=== PATIENT | female | born 1950 | race African-American/Black ===

== ENCOUNTER 2017-01-11 18:47 | Emergency (ER) | payer OTHER ==
[2017-01-11 19:00] VITALS: BP 142/82; PULSE 52; TEMP 98.1; BMI 33.2
[2017-01-11] MEDS ORDERED: ACETAMINOPHEN 500 MG TABLET (FP) PO ONE (19:50)
[2017-01-11] MEDS ORDERED: ACETAMINOPHEN 500 MG TABLET (FP) ONE (19:56)
--- NOTE | 2017-01-11 20:04 | PDOC ---
History of Present Illness - General Chief Complaint: Pain Stated Complaint: RT LEG PAIN Time Seen by Provider: 01/11/17 19:37 History Source: Patient Exam Limitations: No Limitations - History of Present Illness Initial Comments: 01/11/17 20:02 66 yr female with c/o right leg pain for 4 days after flying from [place]. Pt states "cramping, numbness, tingling sensation" to right lateral calf up to thigh, comes and goes. Pt denies trauma, neg headache or dizzyness. Pt has history of HTN. Past History - Past Medical History Allergies/Adverse Reactions: Allergies Allergy/AdvReac Type Severity Reaction Status Date / Time Penicillins Allergy Verified 01/11/17 18:57 Home Medications: Ambulatory Orders Amlodipine Besylate [Norvasc -] 2.5 mg PO DAILY 12/25/15 Gabapentin 300 mg PO BID 12/25/15 Gabapentin [Neurontin -] 300 mg PO Q8H #21 capsule 01/11/17 HTN: Yes - Immunization History Immunization Up to Date: Yes - Psycho/Social/Smoking Cessation Hx Anxiety: No Suicidal Ideation: No Smoking History: Never smoked Have you smoked in the past 12 months: No Hx Alcohol Use: No Drug/Substance Use Hx: No Substance Use Type: None Review of Systems - Review of Systems Able to Perform ROS?: Yes Is the patient limited Mohawk proficient: No Constitutional: No: Symptoms Reported HEENTM: No: Symptoms Reported Respiratory: No: Symptoms reported Cardiac (ROS): No: Symptoms Reported ABD/GI: No: Symptoms Reported : No: Symptoms Reported Musculoskeletal: Yes: Symptoms Reported, See HPI Integumentary: No: Symptoms Reported Neurological: No: Symptoms reported *Physical Exam - Vital Signs Last Vital Signs Temp Pulse Resp BP Pulse Ox 98.1 F 52 L 19 142/82 100 01/11/17 18:57 01/11/17 18:57 01/11/17 18:57 01/11/17 18:57 01/11/17 18:57 - Physical Exam General Appearance: Yes: Nourished, Appropriately Dressed HEENT: positive: EOMI, MICHELLE, TMs Normal, Pharynx Normal Neck: positive: Supple Respiratory/Chest: positive: Lungs Clear, Normal Breath Sounds Cardiovascular: positive: Regular Rhythm, Regular Rate Gastrointestinal/Abdominal: positive: Normal Bowel Sounds, Soft Musculoskeletal: positive: Normal Inspection Extremity: positive: Normal Capillary Refill, Normal Inspection, Normal Range of Motion, Tender (right calf , no redness no swelling ), Calf Tenderness. negative: Coldness, Cyanosis, Delayed Capillary Refill, Pedal Edema, Swelling, Erythema, Inflammation Integumentary: positive: Normal Color, Dry, Warm Neurologic: positive: Fully Oriented, Alert, Normal Mood/Affect, Normal Response , Motor Strength 01/15 ED Treatment Course - RADIOLOGY Radiology Studies Ordered: Category Date Time Status DUPLEX VASCUL US-1 LEG [US] Stat Ultrasound 01/11/17 19:50 Ordered - Medications Given in the ED: ED Medications Discontinued Medications Generic Name Dose Route Start Last Admin Trade Name Freq PRN Reason Stop Dose Admin Acetaminophen 1,000 mg 01/11/17 19:50 01/11/17 20:02 Tylenol - PO 01/11/17 19:51 1,000 mg ONCE ONE Administration Medical Decision Making - Medical Decision Making 01/11/17 20:04 cc: right leg pain calf pain will r/o DVT *DC/Admit/Observation/Transfer Diagnosis at time of Disposition: Leg pain Qualifiers: Laterality: right Qualified Code(s): M79.604 - Pain in right leg - Discharge Dispostion Disposition: HOME Condition at time of disposition: Good - Prescriptions Prescriptions: Gabapentin [Neurontin -] 300 mg PO Q8H #21 capsule - Patient Instructions Additional Instructions: follow with Dr.Gerdis moscoso tomorrow to make a follow up appointment tell them you were in the ER for leg pain please take gabapentin three times a day apply warm compresses to the lower leg every 4hrs for 20 minutes
== END 2017-01-11 20:48 | disposition home or self-care (01) ==
LOC: JERFT 18:47
DX: M79.604 Pain in right leg (principal); I10 Essential (primary) hypertension; X50.1XXA Overexertion from prolonged static or awkward postures, initial encounter; Y93.89 Activity, other specified; Y92.813 Airplane as the place of occurrence of the external cause; Y99.8 Other external cause status
CPT/HCPCS: 93971-TC; 99281-25

== ENCOUNTER 2018-04-09 21:38 | Emergency (ER) | payer OTHER ==
[2018-04-09 22:30] VITALS: BP 155/94; PULSE 75; TEMP 99.6; BMI 24.3
[2018-04-09] MEDS ORDERED: KETOROLAC TROMETHAMINE 30 MG/1 ML VIAL IVPUSH ONE (22:56)
[2018-04-09] MEDS ORDERED: SODIUM CHLORIDE 0.9% 500 ML INFUS.BAG IV ONE (22:56)
--- NOTE | 2018-04-09 22:56 | PDOC ---
Attending Attestation - HPI HPI: 04/10/18 00:37 The patient is a 67 year old female with a past medical history of hypertension who presents to the emergency department for evaluation of back pain. The patient reports a 3 day history of right sided mid back pain. She describes the pain as acute, constant, without radiation, and exacerbated when lying supine. She reports an associated symptom of nausea without vomiting. Pt reports taking 2 ibuprofen with relief to symptoms. Of note, patient has not had a normal bowel movement in the last 2 days. The patient denies recent strenuous activity, chest pain, sob, headache, and dizziness. Denies fever, chills, vomiting, and any bowel/urinary symptoms. Allergies: Penicillins. - Physicial Exam PE: GENERAL: Awake, alert, and fully oriented, in no acute distress HEAD: No signs of trauma EYES: PERRLA, EOMI, sclera anicteric, conjunctiva clear ENT: Auricles normal inspection, hearing grossly normal, nares patent, oropharynx clear without exudates. Moist mucosa NECK: Normal ROM, supple, no lymphadenopathy, JVD, or masses LUNGS: Breath sounds equal, clear to auscultation bilaterally. No wheezes, and no crackles HEART: Regular rate and rhythm, normal S1 and S2, no murmurs, rubs or gallops ABDOMEN: (+)gassy bowel sounds. No flank pain with percussion. Soft, nontender. No guarding, no rebound. No masses MUSCULOSKELETAL: (+)right mid back pain greater with palpation than percussion. EXTREMITIES: Normal range of motion, no edema. No clubbing or cyanosis. No cords, erythema, or tenderness NEUROLOGICAL: Cranial nerves II through XII grossly intact. Normal speech, normal gait SKIN: Warm, Dry, normal turgor, no rashes or lesions noted. <Mia Atkins - Last Filed: 04/10/18 00:37> - Resident Resident Name: Trini Arguelles - ED Attending Attestation I have performed the following: I have examined & evaluated the patient, The case was reviewed & discussed with the resident, I agree w/resident's findings & plan - Medical Decision Making 04/10/18 20:52 Labs and imaging and exam normal. Pt will be d/c home with meds for constipation. Patient Name: GERALDINE ELLIOTT THIS IS A PRELIMINARY REPORT FROM [facility] DATE OF SERVICE: 2018-04-10 00:52:34 IMAGES: [id number] EXAM: ABDOMEN \T\ PELVIS CT W/O CONTR HISTORY: Rule out nephrolithiasis COMPARISON: None. FINDINGS: Lung bases are clear. The visualized cardiac chambers are normal size and configuration. Normal unenhanced liver, gallbladder, pancreas, spleen, adrenal glands and kidneys. The stomach and abdominal small and large bowel are normal. There is no aortic aneurysm. There is no significant retroperitoneal lymphadenopathy. The pelvic small and large bowel are normal. There is no evidence of appendicitis, although the appendix is not clearly visualized. Status post hysterectomy. Urinary bladder is unremarkable. There is no pelvic free fluid. No discrete pelvic lymphadenopathy is identified. IMPRESSION: No evidence acute pathology <Mimi Otero - Last Filed: 04/10/18 20:53> Attestations - Attestations Documentation prepared by Mia Atkins, acting as medical corps officer for Mimi Otero MD. <Mia Atkins - Last Filed: 04/10/18 00:37>
--- NOTE | 2018-04-09 23:09 | PDOC ---
History of Present Illness <Mimi Otero - Last Filed: 04/10/18 01:44> - History of Present Illness Initial Comments: 04/09/18 23:00 67 year old w/ history of HTN who presents with 3 days of R sided mid back pain that is constant, nonradiating and associated with nausea. She notes the pain came on suddenly when she was relaxing. She denies any heavy lifting or strenuous activity, burning with urination, blood in urine or stool, fever, vomiting, diarrhea or constipation. She states that her pain is relieved with ibuprofen and becomes worse with laying down and deep breathing. She has no other complaints at bedside. PMHX: none PSHX: none Meds: amlodipine, carvedilol Allergies: NKDA Tob: none Etoh: none Rec drugs: none <Trini Arguelles - Last Filed: 04/10/18 01:52> - General Chief Complaint: Back Pain Stated Complaint: BACK PAIN Time Seen by Provider: 04/09/18 22:18 Past History <Mimi Otero - Last Filed: 04/10/18 01:44> - Past Medical History HTN: Yes - Immunization History Immunization Up to Date: Yes - Suicide/Smoking/Psychosocial Hx Smoking History: Never smoked Have you smoked in the past 12 months: No Information on smoking cessation initiated: No Hx Alcohol Use: No Drug/Substance Use Hx: No Substance Use Type: None <Trini Arguelles - Last Filed: 04/10/18 01:52> - Past Medical History Allergies/Adverse Reactions: Allergies Allergy/AdvReac Type Severity Reaction Status Date / Time Penicillins Allergy Verified 04/09/18 22:29 Home Medications: Ambulatory Orders Amlodipine Besylate [Norvasc -] 2.5 mg PO DAILY 12/25/15 Gabapentin 300 mg PO BID 12/25/15 Gabapentin [Neurontin -] 300 mg PO Q8H #21 capsule 01/11/17 Acetaminophen [Tylenol] 325 mg PO BID #10 tablet 04/10/18 Review of Systems - Review of Systems Able to Perform ROS?: Yes Is the patient limited Turkish proficient: No Constitutional: No: Chills, Diaphoresis, Fever HEENTM: No: Tinnitus Respiratory: No: Cough, Orthopnea, Shortness of Breath Cardiac (ROS): No: Chest Pain, Palpitations, Chest Tightness ABD/GI: Yes: Nausea. No: Constipated, Diarrhea, Vomiting : No: Burning, Dysuria, Hematuria Musculoskeletal: Yes: Back Pain Neurological: No: Headache, Numbness, Tingling <Trini Arguelles - Last Filed: 04/10/18 01:52> *Physical Exam - Vital Signs Last Vital Signs Temp Pulse Resp BP Pulse Ox 99.6 F 75 20 155/94 100 04/09/18 22:29 04/09/18 22:29 04/09/18 22:29 04/09/18 22:29 04/09/18 22:29 <OteroMimi - Last Filed: 04/10/18 01:44> - Vital Signs Last Vital Signs Temp Pulse Resp BP Pulse Ox 99.6 F 75 20 155/94 100 04/09/18 22:29 04/09/18 22:29 04/09/18 22:29 04/09/18 22:29 04/09/18 22:29 - Physical Exam Comments: 04/09/18 23:09 GENERAL: Awake, alert, and fully oriented, somewhat uncomfortable in bed. HEAD: No signs of trauma, normocephalic, atraumatic EYES: EOMI, sclera anicteric, conjunctiva clear ENT: oropharynx clear without exudates. Moist mucosa NECK: Normal ROM LUNGS: No distress, speaks full sentences, clear to auscultation bilaterally HEART: Regular rate and rhythm, normal S1 and S2, no murmurs, rubs or gallops, peripheral pulses normal and equal bilaterally. ABDOMEN: Soft, nontender, normoactive bowel sounds. No guarding, no rebound. No masses BACK: No CVA tenderness EXTREMITIES : Normal inspection, Normal range of motion, no edema. No clubbing or cyanosis. NEUROLOGICAL: Normal speech, normal gait, no focal sensorimotor deficits SKIN: Warm, Dry, normal turgor, no rashes or lesions noted <Trini Arguelles - Last Filed: 04/10/18 01:52> ED Treatment Course - LABORATORY CBC & Chemistry Diagram: 04/09/18 23:30 04/09/18 23:30 - ADDITIONAL ORDERS Additional order review: Laboratory Results 04/09/18 04/09/18 23:30 23:30 Sodium 140 Potassium 4.1 Chloride 105 Carbon Dioxide 27 Anion Gap 8 BUN 18 Creatinine 0.9 Creat Clearance w eGFR > 60 Random Glucose 96 Calcium 9.2 Total Bilirubin 0.4 AST 18 ALT 23 Alkaline Phosphatase 83 Total Protein 7.6 Albumin 3.5 Urine Color Colorless Urine Appearance Clear Urine pH 8.0 Ur Specific [place] 1.004 Urine Protein Negative Urine Glucose (UA) Negative Urine Ketones Negative Urine Blood Negative Urine Nitrite Negative Urine Bilirubin Negative Urine Urobilinogen Negative Ur Leukocyte Esterase Negative 04/09/18 23:30 RBC 4.33 MCV 79.9 L MCHC 33.6 RDW 17.2 H MPV 8.1 Neutrophils % 62.6 Lymphocytes % 25.9 Monocytes % 9.6 Eosinophils % 1.4 Basophils % 0.5 - Medications Given in the ED: ED Medications Discontinued Medications Generic Name Dose Route Start Last Admin Trade Name Rajeshq PRN Reason Stop Dose Admin Ketorolac Tromethamine 30 mg 04/09/18 22:56 04/09/18 23:36 Toradol Injection - IVPUSH 04/09/18 22:57 30 mg ONCE ONE Administration Lactulose 20 gm 04/10/18 00:35 04/10/18 01:25 Cephulac (Oral Use) PO 04/10/18 00:36 20 gm ONCE ONE Administration Sodium Chloride 500 ml 04/09/18 22:56 04/09/18 23:35 Normal Saline - IV 04/09/18 22:57 500 ml ONCE ONE Administration <Mimi Otero - Last Filed: 04/10/18 01:44> - LABORATORY CBC & Chemistry Diagram: 04/09/18 23:30 04/09/18 23:30 - RADIOLOGY Radiology Studies Ordered: Category Date Time Status ABDOMEN CT WITHOUT CONTRAST [CT] Stat CT Scan 04/09/18 22:52 Ordered <Trini Arguelles - Last Filed: 04/10/18 01:52> Medical Decision Making - Medical Decision Making 04/09/18 23:12 67 year old w/ history of HTN who presents with 3 days of R sided mid back pain that is constant, nonradiating and associated with nausea. The patients symptoms and history or most consistent with nephrolithiasis vs UTI vs pyelonephritis vs muscle strain. We will evaluate for these etiologies. 04/10/18 01:45 Lab work and imaging show no acute pathology and no necessity for immediate hospitalization. Patient is stable for discharge. Will give short course of Tylenol and advise to follow up with PCP. <Trini Arguelles - Last Filed: 04/10/18 01:52> *DC/Admit/Observation/Transfer - Discharge Dispostion Decision to Admit order: No <Mimi Otero - Last Filed: 04/10/18 01:44> <Trini Arguelles - Last Filed: 04/10/18 01:52> Diagnosis at time of Disposition: Constipation - Discharge Dispostion Disposition: HOME Condition at time of disposition: Stable - Prescriptions Prescriptions: Acetaminophen [Tylenol] 325 mg PO BID #10 tablet - Referrals Referrals: Sukumar Patel MD [Primary Care Provider] - - Patient Instructions Printed Discharge Instructions: DI for Constipation - Post Discharge Activity
[2018-04-09] MEDS ORDERED: KETOROLAC TROMETHAMINE 30 MG/1 ML VIAL ONE (23:12)
[2018-04-09 23:42] LABS: BASO % 0.5 % (0-2.0); EOS % 1.4 % (0-4.5); HEMATOCRIT 34.6 % (32.4-45.2); HEMOGLOBIN 11.6 GM/dL (10.7-15.3); LYMPH % 25.9 % (8-40); MCH 26.8 pg (25.7-33.7); MCHC 33.6 g/dl (32.0-36.0); MEAN CELL VOLUME 79.9 fl (80-96); MEAN PLT VOLUME 8.1 fl (7.5-11.1); MONO % 9.6 % (3.8-10.2); NEUT % 62.6 % (42.8-82.8); PLATELET COUNT 273 K/MM3 (134-434); RBC 4.33 M/mm3 (3.60-5.2); RDW 17.2 % (11.6-15.6); WHITE BLOOD COUNT 8.1 K/mm3 (4.0-10.0)
[2018-04-09 23:43] LABS: URINE APPEARANCE CLEAR; URINE BILIRUBIN NEGATIVE (<2.0 mg/dL); URINE COLOR COLORLESS; URINE GLUCOSE (UA) NEGATIVE (NEGATIVE); URINE KETONE NEGATIVE (NEGATIVE); URINE LEUK ESTERASE NEGATIVE (NEGATIVE); URINE NITRITE NEGATIVE (NEGATIVE); URINE PROTEIN NEGATIVE (NEGATIVE); URINE UROBILINOGEN NEGATIVE mg/dL (0.2-1.0)
[2018-04-10 00:03] LABS: ALBUMIN 3.5 g/dl (3.4-5.0); ALK PHOS 83 U/L (45-117); ANION GAP 8 (8-16); BILIRUBIN,TOTAL 0.4 mg/dL (0.2-1.0); BLOOD UREA NITROGEN 18 mg/dL (7-18); CALCIUM 9.2 mg/dL (8.5-10.1); CHLORIDE 105 mmol/L (98-107); CO2 27 mmol/L (21-32); CREATININE 0.9 mg/dL (0.55-1.02); GLUCOSE,RANDOM 96 mg/dL (74-106); POTASSIUM 4.1 mmol/L (3.5-5.1); SGOT/AST 18 U/L (15-37); SGPT/ALT 23 U/L (12-78); SODIUM 140 mmol/L (136-145); TOT PROT 7.6 g/dl (6.4-8.2)
[2018-04-10] MEDS ORDERED: LACTULOSE 20 GM/30 ML UDC (FOR ORAL USE ONLY) PO ONE (00:35)
[2018-04-10] MEDS ORDERED: LACTULOSE 20 GM/30 ML UDC (FOR ORAL USE ONLY) ONE (00:49)
== END 2018-04-10 02:18 | disposition home or self-care (01) ==
LOC: JER 21:38
PROC: 3E0333Z Introduction of Anti-inflammatory into Peripheral Vein, Percutaneous Approach (ICD-10-PCS; principal; 2018-04-09)
PROC: 3E033NZ Introduction of Analgesics, Hypnotics, Sedatives into Peripheral Vein, Percutaneous Approach (ICD-10-PCS; 2018-04-09)
DX: K59.00 Constipation, unspecified (principal); I10 Essential (primary) hypertension
CPT/HCPCS: 36415; 74176-TC; 80053; 81003; 85025; 87086; 99281-25

== ENCOUNTER 2018-11-27 09:15 | Emergency (ER) | payer OTHER ==
[2018-11-27 09:21] VITALS: BP 152/74; PULSE 62; TEMP 97.7; BMI 33.2
--- NOTE | 2018-11-27 09:46 | PDOC ---
History of Present Illness - General Chief Complaint: Pain Stated Complaint: LEG NUMBNESS Time Seen by Provider: 11/27/18 09:32 History Source: Patient (L knee thighness X 4 months) Exam Limitations: No Limitations - History of Present Illness Associated Symptoms: denies: chest pain, cough Past History - Past Medical History Allergies/Adverse Reactions: Allergies Allergy/AdvReac Type Severity Reaction Status Date / Time Penicillins Allergy Verified 11/27/18 09:21 Home Medications: Ambulatory Orders Amlodipine Besylate [Norvasc -] 2.5 mg PO DAILY 12/25/15 Carvedilol 12.5 mg PO ASDIR 11/27/18 COPD: No HTN: Yes - Immunization History Immunization Up to Date: Yes - Suicide/Smoking/Psychosocial Hx Smoking History: Never smoked Have you smoked in the past 12 months: No Hx Alcohol Use: No Drug/Substance Use Hx: No Substance Use Type: None Review of Systems - Review of Systems Is the patient limited Belarusian proficient: No Constitutional: No: Chills, Fever Respiratory: No: Orthopnea, Shortness of Breath Cardiac (ROS): No: Chest Pain, Irregular Heart Rate ABD/GI: No: Abdominal Distended Musculoskeletal: Yes: Joint Swelling, Joint Stiffness (left knee) Neurological: Yes: Numbness. No: Headache, Paresthesia, Tingling, Weakness, Unsteady Gait, Ataxia, Dizziness *Physical Exam - Vital Signs Last Vital Signs Temp Pulse Resp BP Pulse Ox 97.7 F 62 18 152/74 99 11/27/18 09:19 11/27/18 09:19 11/27/18 09:19 11/27/18 09:19 11/27/18 09:19 - Physical Exam General Appearance: Yes: Nourished Respiratory/Chest: positive: Lungs Clear, Normal Breath Sounds Cardiovascular: positive: Regular Rhythm, Regular Rate, S1, S2 Vascular Pulses: Dorsalis-Pedis (R): 2+, Doralis-Pedis (L): 2+ Extremity: positive: Normal Capillary Refill, Normal Inspection, Normal Range of Motion, Other (L knee: well healed scar in anterior aspect of knee, FROM with crepitus, + tenderness behind calf, no warmth. distal pulses intact, + limping gait) Neurologic: positive: commodities manager II-XII NML intact, Fully Oriented Moderate Sedation - Procedure Monitoring Vital Signs: Procedure Monitoring Vital Signs Temperature 97.7 F 11/27/18 09:19 Pulse Rate 62 11/27/18 09:19 Respiratory Rate 18 11/27/18 09:19 Blood Pressure 152/74 11/27/18 09:19 O2 Sat by Pulse Oximetry (%) 99 11/27/18 09:19 ED Treatment Course - RADIOLOGY Radiology Studies Ordered: Category Date Time Status KNEE 3 POS-LEFT [RAD] Stat Radiology 11/27/18 09:36 Ordered DUPLEX VASCUL US-1 LEG [US] Stat Ultrasound 11/27/18 09:38 Ordered Medical Decision Making - Medical Decision Making 11/27/18 09:45 67 years old female with chronic left knee tightness/heaviness and pain after a knee replacement in July. Patient reports that she had a total left knee replacement at [facility] in July she has followed up with the surgeon as recommended for the above pain and tightness. she has also completed on 4 months of physical therapy with no relief. Patient presents that knee is extremely tight and is a sense of numbness mainly at 19th but has worsened over the past 2 days. She denies any recent trauma any fever chills Plan Xray sono to r/o DVT dispo pending 11/27/18 10:57 xray and duplex negative pt advised to f/u orthopedics *DC/Admit/Observation/Transfer Diagnosis at time of Disposition: Knee pain, chronic Qualifiers: Laterality: left Qualified Code(s): M25.562 - Pain in left knee - Discharge Dispostion Disposition: HOME Condition at time of disposition: Stable Decision to Admit order: No - Referrals Referrals: Sukumar Patel MD [Primary Care Provider] - - Patient Instructions Additional Instructions: Your x-ray and sonogram was negative for any fracture and any blood clot. Please follow-up with your orthopedic for further evaluation. - Post Discharge Activity
== END 2018-11-27 11:08 | disposition home or self-care (01) ==
LOC: JERFT 09:15
DX: M79.89 Other specified soft tissue disorders (principal); M25.562 Pain in left knee; Z96.652 Presence of left artificial knee joint
CPT/HCPCS: 73562-TC-LT-FY; 93971-TC; 99281-25

== ENCOUNTER 2019-06-03 14:47 | Emergency (ER) | payer OTHER ==
[2019-06-03 14:50] VITALS: BP 120/74; PULSE 74; TEMP 98.9; BMI 34.2
[2019-06-03] MEDS ORDERED: IBUPROFEN 600 MG TABLET (FP) PO ONE ×2 (15:08→15:17)
[2019-06-03] MEDS ORDERED: ACETAMINOPHEN 500 MG TABLET (FP) PO ONE (15:16)
[2019-06-03] MEDS ORDERED: ACETAMINOPHEN 500 MG TABLET (FP) ONE (15:17)
--- NOTE | 2019-06-03 15:21 | PDOC ---
History of Present Illness - General Chief Complaint: Injury Stated Complaint: FALL / BILAT KNEE PAIN Time Seen by Provider: 06/03/19 14:51 History Source: Patient Exam Limitations: No Limitations Past History - Travel Traveled outside of the country in the last 30 days: No Close contact w/someone who was outside of country & ill: No - Past Medical History Allergies/Adverse Reactions: Allergies Allergy/AdvReac Type Severity Reaction Status Date / Time Penicillins Allergy Verified 06/03/19 14:50 Home Medications: Ambulatory Orders Amlodipine Besylate [Norvasc -] 2.5 mg PO DAILY 12/25/15 Carvedilol 12.5 mg PO ASDIR 11/27/18 Acetaminophen [Tylenol -] 1,000 mg PO Q6H #30 tablet 06/03/19 Ibuprofen 600 mg PO Q6H #30 tablet 06/03/19 COPD: No HTN: Yes - Immunization History Immunization Up to Date: Yes - Suicide/Smoking/Psychosocial Hx Smoking History: Never smoked Have you smoked in the past 12 months: No Hx Alcohol Use: No Drug/Substance Use Hx: No Substance Use Type: None Review of Systems - Review of Systems Able to Perform ROS?: Yes Comments:: 06/03/19 15:16 CONSTITUTIONAL: Absent: fever, chills, diaphoresis, generalized weakness, malaise, loss of appetite MUSCULOSKELETAL: Present: b/l knee pain Absent: myalgia, arthralgia, joint swelling SKIN: Absent: rash, itching, pallor NEUROLOGIC: Absent: headache, focal weakness or paresthesias, dizziness, unsteady gait, seizure, mental status changes, bladder or bowel incontinence PSYCHIATRIC: Absent: anxiety, depression, suicidal or homicidal ideation, hallucinations. Is the patient limited Iraqi proficient: No *Physical Exam - Vital Signs Last Vital Signs Temp Pulse Resp BP Pulse Ox 98.9 F 74 16 120/74 97 06/03/19 14:48 06/03/19 14:48 06/03/19 14:48 06/03/19 14:48 06/03/19 14:48 - Physical Exam Comments: 06/03/19 15:17 GENERAL: Well developed, well nourished. Awake and alert. No acute distress. HEENT: Normocephalic, atraumatic. PERRLA, EOMI. No conjunctival pallor. Sclera are non- icteric. Moist mucous membranes. Oropharynx is clear. NECK: Supple. Full ROM. No JVD. Carotid pulses 2+ and symmetric, without bruits. No thyromegaly. No lymphadenopathy. MUSCULOSKELETAL TTP of the R knee at the medal and lateral aspect. (+) lachmans test on the R. L knee with surgical scar, TTP of the lateral and medial aspects. (-) special testng. Normal range of motion at all other joints. No bony deformities. No CVA tenderness. EXTREMITIES: No cyanosis. No clubbing. No edema. No calf tenderness. SKIN: Warm and dry. Normal capillary refill. No rashes. No jaundice. NEUROLOGICAL: Alert, awake, appropriate. Cranial nerves 2-12 intact. No deficits to light touch and temperature in face, upper extremities and lower extremities. No motor deficits in the in face, upper extremities and lower extremities. Normoreflexic in the upper and lower extremities. Normal speech. Toes are down- going bilaterally. Gait is normal without ataxia. PSYCHIATRIC: Cooperative. Good eye contact. Appropriate mood and affect. ED Treatment Course - RADIOLOGY Radiology Studies Ordered: Category Date Time Status KNEE 3 POS-LEFT [RAD] Stat Radiology 06/03/19 15:15 Ordered KNEE 3 POS-RIGHT [RAD] Stat Radiology 06/03/19 15:15 Ordered Medical Decision Making - Medical Decision Making 06/03/19 15:18 The patient is a 68 y/o F with PMH of HTN, who presents to the ER today for b/l knee pain s/p fall last night. The patient states she missed one step at the bottom of her stair case and fell, landing on her knees. She has past surgical hx of L knee total replace. She states it hurts to walk. Denies numbness, tingling and weakness to the affected extremities. Denies hitting her head or losing consciousness A/P: Knee pain On exam R knee with laxity with anterior draw. Suspect partial ACL injury X-rays of both knees appear unremarkable for fracture. (+) knee replacement on the L. R with severe OA Tylenol and Motrin given with improvement in symptoms Pt poor candidate for crutches Advise pt to use walker at home for support and to f/u with her orthopedist on Wednesday DC home I discussed the physical exam findings, ancillary test results and final diagnoses with the patient. I answered all of the patient's questions. The patient was satisfied with the care received and felt comfortable with the discharge plan and treatment plan. The Patient agrees to follow up with the primary care physician/specialist within 24-72 hours. Return precautions were given. *DC/Admit/Observation/Transfer Diagnosis at time of Disposition: Knee pain Qualifiers: Chronicity: acute Laterality: bilateral Qualified Code(s): M25.561 - Pain in right knee - Discharge Dispostion Disposition: HOME Condition at time of disposition: Stable Decision to Admit order: No - Prescriptions Prescriptions: Acetaminophen [Tylenol -] 1,000 mg PO Q6H #30 tablet Ibuprofen 600 mg PO Q6H #30 tablet - Referrals Referrals: Sukumar Patel MD [Primary Care Provider] - - Patient Instructions Printed Discharge Instructions: DI for Knee Pain Additional Instructions: You were evaluated for you knee pain Your x-rays were normal However based on your physical exam, I am worried you may have injured your ACL Please follow up with your orthopedist this Wednesday Take the tylenol and Motrin as directed Return to the ER for worsening pain, numbness in both extremities or if you have any changes in your symptoms - Post Discharge Activity
== END 2019-06-03 16:49 | disposition home or self-care (01) ==
LOC: JERFT 14:47
DX: M25.561 Pain in right knee (principal); W10.8XXA Fall (on) (from) other stairs and steps, initial encounter; Y93.89 Activity, other specified; Y92.018 Other place in single-family (private) house as the place of occurrence of the external cause; Y99.8 Other external cause status; M17.11 Unilateral primary osteoarthritis, right knee; Z96.652 Presence of left artificial knee joint; I10 Essential (primary) hypertension
CPT/HCPCS: 73562-TC-LT-FY; 73562-TC-RT-FY; 99281-25

== ENCOUNTER 2021-07-02 07:42 | Observation (INO) | payer OTHER ==
[2021-07-02 07:53] VITALS: BMI 37.5
[2021-07-02] MEDS ORDERED: METOCLOPRAMIDE HCL INJECTION 10 MG/2 ML VIAL IVPUSH ONE (09:11)
[2021-07-02] MEDS ORDERED: METOCLOPRAMIDE HCL INJECTION 10 MG/2 ML VIAL ONE (09:15)
[2021-07-02 09:50] LABS: BASO % 0.5 % (0-2.0); EOS % 2.5 % (0-4.5); HEMATOCRIT 33.9 % (32.4-45.2); HEMOGLOBIN 11.5 GM/dL (10.7-15.3); LYMPH % 34.9 % (8-40); MCH 26.5 pg (25.7-33.7); MCHC 33.8 g/dl (32.0-36.0); MEAN CELL VOLUME 78.4 fl (80-96); MONO % 10.2 % (3.8-10.2); NEUT % 51.9 % (42.8-82.8); PLATELET COUNT 353 10^3/uL (134-434); RBC 4.33 M/mm3 (3.60-5.2); RDW 18.4 % (11.6-15.6); WHITE BLOOD COUNT 4.5 K/mm3 (4.0-10.0)
[2021-07-02 10:14] LABS: CHLORIDE 106 mmol/L (98-107); SODIUM 133 mmol/L (136-145)
[2021-07-02 10:15] LABS: CALCIUM 9.6 mg/dL (8.5-10.1)
[2021-07-02 10:16] LABS: BLOOD UREA NITROGEN 10.1 mg/dL (7-18); CO2 27 mmol/L (21-32); GLUCOSE,RANDOM 99 mg/dL (74-106)
[2021-07-02 10:19] LABS: CREATININE 0.8 mg/dL (0.55-1.3); SGOT/AST 119 U/L (15-37)
[2021-07-02 10:20] LABS: BILIRUBIN,TOTAL 0.4 mg/dL (0.2-1)
[2021-07-02 10:22] LABS: ALK PHOS 92 U/L (45-117)
[2021-07-02 10:29] LABS: ANION GAP 1 MMOL/L (8-16); SGPT/ALT 38 U/L (13-61)
[2021-07-02] MEDS ORDERED: LORazepam 1 MG TABLET PO ONE (11:47)
[2021-07-02] MEDS ORDERED: MECLIZINE HCL 25 MG TABLET (FP) PO ONE (11:47)
[2021-07-02 11:48] LABS: ALBUMIN 3.3 g/dl (3.4-5.0); BLOOD UREA NITROGEN 9.9 mg/dL (7-18); CALCIUM 9.9 mg/dL (8.5-10.1)
[2021-07-02 11:52] LABS: CREATININE 0.7 mg/dL (0.55-1.3)
[2021-07-02 11:53] LABS: BILIRUBIN,TOTAL 0.5 mg/dL (0.2-1); TOT PROT 7.9 g/dl (6.4-8.2)
[2021-07-02] MEDS ORDERED: MECLIZINE HCL 25 MG TABLET (FP) ONE (12:23)
[2021-07-02] MEDS ORDERED: LORazepam 1 MG TABLET ONE (12:24)
[2021-07-02] MEDS ORDERED: ACETAMINOPHEN 325 MG TABLET (FP) PO PRN (18:03)
[2021-07-02] MEDS ORDERED: LORazepam 0.5 MG TABLET PO PRN (19:17)
[2021-07-02] MEDS: HEPARIN NA (PORCINE) 5,000 UNITS/ML 1ML VIAL SQ SCH (22:10)
[2021-07-02] MEDS: CARVEDILOL 12.5 MG TABLET (FP) PO SCH (22:10)
[2021-07-02] MEDS: MECLIZINE HCL 12.5 MG TABLET PO PRN (22:13)
[2021-07-03] MEDS: HEPARIN NA (PORCINE) 5,000 UNITS/ML 1ML VIAL SQ SCH ×2 (05:27→13:22)
[2021-07-03 06:39] VITALS: TEMP 98.2
[2021-07-03 09:31] LABS: BASO % 1.4 % (0-2.0); EOS % 2.7 % (0-4.5); HEMATOCRIT 34.7 % (32.4-45.2); HEMOGLOBIN 11.5 GM/dL (10.7-15.3); LYMPH % 41.3 % (8-40); MCH 26.2 pg (25.7-33.7); MCHC 33.1 g/dl (32.0-36.0); MEAN CELL VOLUME 79.1 fl (80-96); MEAN PLT VOLUME 7.7 fl (7.5-11.1); MONO % 9.1 % (3.8-10.2); NEUT % 45.5 % (42.8-82.8); PLATELET COUNT 304 10^3/uL (134-434); RBC 4.39 M/mm3 (3.60-5.2); RDW 18.2 % (11.6-15.6); WHITE BLOOD COUNT 4.2 K/mm3 (4.0-10.0)
[2021-07-03] MEDS: CARVEDILOL 12.5 MG TABLET (FP) PO SCH (09:48)
[2021-07-03] MEDS: MECLIZINE HCL 12.5 MG TABLET PO PRN (09:48)
[2021-07-03 09:58] LABS: ALBUMIN 2.9 g/dl (3.4-5.0); BILIRUBIN,TOTAL 0.5 mg/dL (0.2-1)
[2021-07-03] MEDS ORDERED: amLODIPine BESYLATE 5 MG TABLET (FP) PO SCH (10:00)
[2021-07-03 10:01] LABS: CREATININE 0.9 mg/dL (0.55-1.3); PHOSPHOROUS 2.7 mg/dL (2.5-4.9)
[2021-07-03 10:03] LABS: CALCIUM 9.1 mg/dL (8.5-10.1)
[2021-07-03 10:05] LABS: MAGNESIUM 1.7 mg/dL (1.8-2.4)
[2021-07-03] MEDS ORDERED: MAGNESIUM SULF 50% (8.12 MEQ/2 ML-1 GM VIAL) IVPB ONE (13:06)
[2021-07-03] MEDS ORDERED: PT OWN MED DRAWER 7, Y5N ONE (13:12)
[2021-07-03 14:49] VITALS: BP 139/87; PULSE 77
== END 2021-07-03 18:04 | disposition home or self-care (01) ==
LOC: JER 07:42 → UNDOADMOB 15:06 → JERBED 15:06 → INTOOBSV 15:06 → JERBED 20:21 → J8W 20:21 → JERBED 07-03 10:16
PROVIDERS: ATTEND Internal Medicine
PROC: 3E023GC Introduction of Other Therapeutic Substance into Muscle, Percutaneous Approach (ICD-10-PCS; principal; 2021-07-03)
PROC: 3E033GC Introduction of Other Therapeutic Substance into Peripheral Vein, Percutaneous Approach (ICD-10-PCS; 2021-07-03)
DX: I10 Essential (primary) hypertension (principal); E66.9 Obesity, unspecified; Z68.37 Body mass index [BMI] 37.0-37.9, adult; Z88.0 Allergy status to penicillin; Z29.9 Encounter for prophylactic measures, unspecified
CPT/HCPCS: 36415; 70450-TC; 71045-TC-FY; 80053; 83735; 84100; 85025; 93005; 93010; 96372; 96374; 96375; 99285-25; C9803; G0378; J1644; U0003; U0005

== ENCOUNTER 2023-10-11 13:13 | Emergency (ER) | payer OTHER ==
[2023-10-11 13:19] VITALS: RESP 20; BMI 38.1
[2023-10-11] MEDS ORDERED: KETOROLAC TROMETHAMINE 30 MG/1 ML VIAL IM ONE (14:38)
[2023-10-11] MEDS ORDERED: KETOROLAC TROMETHAMINE 30 MG/1 ML VIAL ONE (14:47)
[2023-10-11 17:02] VITALS: BP 128/71; PULSE 78; TEMP 98.4
[2023-10-11] MEDS ORDERED: LIDOCAINE 4% PATCH TP SCH (17:15)
[2023-10-11] MEDS ORDERED: LIDOCAINE 4% PATCH TP ONE (17:17)
[2023-10-11] MEDS ORDERED: LIDOCAINE PATCH REMOVAL MC SCH (22:00)
== END 2023-10-11 20:08 | disposition home or self-care (01) ==
LOC: JER 13:13
PROC: 3E0233Z Introduction of Anti-inflammatory into Muscle, Percutaneous Approach (ICD-10-PCS; principal; 2023-10-11)
DX: M17.11 Unilateral primary osteoarthritis, right knee (principal); M25.561 Pain in right knee; M25.461 Effusion, right knee; R26.2 Difficulty in walking, not elsewhere classified
CPT/HCPCS: 73562-TC-RT-FY; 73610-TC-RT-FY; 73630-TC-RT-FY; 93970-TC; 99284-25

== ENCOUNTER 2023-11-15 06:04 | Day surgery (SDC) | payer OTHER ==
[2023-11-15 06:47] VITALS: BMI 36.5
[2023-11-15] MEDS ORDERED: VANCOMYCIN 1,000 MG VIAL (RESTRICTED TO ID ONLY) ONE (07:05)
[2023-11-15] MEDS ORDERED: MIDAZOLAM HCL 2 MG/2 ML SINGLE DOSE VIAL ONE ×2 (07:28→09:29)
[2023-11-15] MEDS ORDERED: FENTANYL CITRATE/PF 50 MCG/ML VIAL ONE (07:29)
[2023-11-15] MEDS ORDERED: BUPIVACAINE LIPOSOME/PF (EXPAREL) 266 MG/20 ML VIAL ONE (07:29)
[2023-11-15] MEDS ORDERED: ACETAMINOPHEN INJECTION 100 ML IVPB ONE (07:29)
[2023-11-15] MEDS ORDERED: BUPIVACAINE HCL/PF 0.5% (5MG/ML) 10 ML VIAL ONE (07:29)
[2023-11-15] MEDS ORDERED: ONDANSETRON 4 MG/2 ML VIAL IVPUSH PRN (08:49)
[2023-11-15] MEDS ORDERED: ACETAMINOPHEN 325 MG TABLET (FP) PO PRN (08:49)
[2023-11-15] MEDS ORDERED: LACTATED RINGERS SOLUTION 1,000 ML IV SCH (09:00)
[2023-11-15] MEDS ORDERED: PHENYLEPHRINE HCL 10 MG/1 ML SINGLE DOSE VIAL ONE (09:03)
[2023-11-15] MEDS ORDERED: TRANEXAMIC ACID 1000 MG/10 ML VIAL ONE (09:27)
[2023-11-15] MEDS ORDERED: BUPIVICAINE 0.25%/MORPH PF/KETOROLAC - 51ML DISP.SYRINGE IA ONE (09:54)
[2023-11-15] MEDS: BUPIVICAINE 0.25%/MORPH PF/KETOROLAC - 51ML DISP.SYRINGE IA ONE (11:02)
[2023-11-15] MEDS ORDERED: traMADol HCL 50 MG TABLET PO PRN (11:53)
[2023-11-15] MEDS ORDERED: oxyCODONE HCL 5 MG TABLET PO PRN ×2 (11:55)
[2023-11-15] MEDS: TRANEXAMIC ACID 1000 MG/10 ML VIAL IVPUSH ONE (13:26)
[2023-11-15] MEDS: CEFAZOLIN 2 GM in DEXTROSE 5%-WATER - 100 ML IVPB ONE (13:26)
[2023-11-15] MEDS: ACETAMINOPHEN 500 MG TABLET (FP) PO SCH (13:26)
[2023-11-15] MEDS: LACTATED RINGERS SOLUTION 1,000 ML IV SCH (13:26)
[2023-11-15] MEDS: traMADol HCL 50 MG TABLET PO PRN (14:39)
[2023-11-15] MEDS: ONDANSETRON 4 MG/2 ML VIAL IVPUSH PRN (14:41)
[2023-11-15] MEDS: CEFAZOLIN SODIUM 2 GM in DEXTROSE 5%-WATER - 50 ML IVPB SCH (17:35)
[2023-11-15] MEDS: SENNOSIDES/DOCUSATE COMBO (SENNA PLUS) TABLET (UD) PO SCH (21:31)
[2023-11-15] MEDS: MECLIZINE HCL 12.5 MG TABLET PO SCH (21:32)
[2023-11-15] MEDS: CARVEDILOL 12.5 MG TABLET (FP) PO SCH (21:32)
[2023-11-15] MEDS: ASPIRIN 81 MG CHEWABLE TABLETS PO SCH (21:32)
[2023-11-15 22:29] VITALS: RESP 18
[2023-11-16] MEDS: MAG HYDROX/AL HYDROX/SIMETH 30 ML UNIT-DOSE CUP PO PRN (08:19)
[2023-11-16] MEDS: MULTIVITAMINS (DAILY MVI) TABLET (FP) PO SCH (09:07)
[2023-11-16] MEDS: VALSARTAN 160 MG TABLET PO SCH (09:07)
[2023-11-16] MEDS: PANTOPRAZOLE 40 MG TABLET PO SCH (09:07)
[2023-11-16] MEDS: PATIENT'S OWN MEDICATION (NON-FORMULARY) (Calcium Carb, Citrate/Vit D3 [Calcium + D3 Er Ta PO SCH (10:59)
[2023-11-16] MEDS: CELECOXIB 100 MG CAPSULE PO SCH (13:06)
[2023-11-16 14:16] VITALS: BP 154/65; PULSE 78; TEMP 98.3
== END 2023-11-16 16:54 ==
LOC: SUATTDRO 06:04 → FASUSAT 06:04 → FM/S 12:53 → FASUSAT 11-16 16:54
PROVIDERS: ATTEND Internal Medicine
PROC: 8E0Y0CZ Robotic Assisted Procedure of Lower Extremity, Open Approach (ICD-10-PCS; 2023-11-15)
PROC: 0SRC0JA Replacement of Right Knee Joint with Synthetic Substitute, Uncemented, Open Approach (ICD-10-PCS; principal; 2023-11-15 09:49)
DX: M17.11 Unilateral primary osteoarthritis, right knee (principal)
CPT/HCPCS: 20985; 27447; C1776; S2900; 73560-TC-RT-FY; 88305-TC; 88311-TC; 94760; 97010-GP; 97116-GP; 97162-GP; J0131

== ENCOUNTER 2024-03-21 06:05 | Day surgery (SDC) | payer OTHER ==
[2024-03-15 14:21] VITALS: BMI 36.5
[2024-03-21] MEDS ORDERED: ONDANSETRON 4 MG/2 ML VIAL IVPUSH PRN (07:10)
[2024-03-21] MEDS ORDERED: PROMETHAZINE HCL 25 MG/1 ML VIAL IVPB PRN (07:10)
[2024-03-21] MEDS ORDERED: oxyCODONE HCL 5 MG TABLET PO PRN (07:10)
[2024-03-21] MEDS ORDERED: LACTATED RINGERS SOLUTION 1,000 ML IV SCH (07:15)
[2024-03-21] MEDS ORDERED: PROPOFOL 20 ML ONE (07:29)
[2024-03-21] MEDS ORDERED: KETOROLAC TROMETHAMINE 30 MG/1 ML VIAL ONE (07:32)
[2024-03-21] MEDS ORDERED: LIDOCAINE HCL/PF 2% SDV 5ML VIAL ONE (07:33)
[2024-03-21] MEDS ORDERED: hydrALAZINE HCL 20 MG/ML VIAL ONE (07:47)
[2024-03-21] MEDS: ACETAMINOPHEN 500 MG TABLET (FP) PO ONE (08:18)
[2024-03-21 08:27] VITALS: RESP 16
[2024-03-21 09:10] VITALS: BP 91/50; PULSE 75; TEMP 97.1
== END 2024-03-21 09:05 | disposition home or self-care (01) ==
LOC: FASU 06:05
PROVIDERS: ATTEND Orthopaedic Surgery Sports Medicine
PROC: 0SSCXZZ Reposition Right Knee Joint, External Approach (ICD-10-PCS; principal; 2024-03-21 07:39)
DX: M24.661 Ankylosis, right knee (principal)
CPT/HCPCS: 94760